=== PATIENT | female | born 1965 | race Caucasian/White ===

== ENCOUNTER 2017-01-31 21:06 | Emergency (ER) | payer OTHER ==
[~2017-01-31] VITALS: Ht 162.5 cm; Wt 68.0 kg
[~2017-01-31 21:06] MED LIST: ADVAIR 100/501 E1; ALBUTEROL0.09 MG/A2; AUGMENTIN 875875 MG PO; CIPRO500 MG PO; CIPROFLOXACIN500 MG PO; GABAPENTIN300 MG; MOTRIN800 MG PO; NOLVADEX20 MG; PRILOSEC20 MG PO; RIFADIN300 MG PO; VICODIN ES 7501 TAB PO; VITAMINS; ZITHROMAX Z PA250 MG PO
== END 2017-01-31 21:33 | disposition home or self-care (01) ==
LOC: ED 21:06
DX: Z20.811 Contact with and (suspected) exposure to meningococcus (principal); Z88.2 Allergy status to sulfonamides; Z88.8 Allergy status to other drugs, medicaments and biological substances; Z79.899 Other long term (current) drug therapy

== ENCOUNTER 2024-11-20 11:38 | Emergency (ER) | payer MEDICAID ==
[~2024-11-20] VITALS: Ht 152.4 cm; Wt 49.9 kg
[2024-11-20] MEDS ORDERED: NAPROSYN500 MG PO (13:40)
== END 2024-11-20 13:46 | disposition home or self-care (01) ==
LOC: ED 11:38
DX: S93.402A Sprain of unspecified ligament of left ankle, initial encounter (principal); Z79.899 Other long term (current) drug therapy; Z88.1 Allergy status to other antibiotic agents; Z88.2 Allergy status to sulfonamides; Z88.8 Allergy status to other drugs, medicaments and biological substances; J45.909 Unspecified asthma, uncomplicated; X50.0XXA Overexertion from strenuous movement or load, initial encounter; Y93.89 Activity, other specified; Y92.89 Other specified places as the place of occurrence of the external cause; Y99.8 Other external cause status